=== PATIENT | male | born 1990 | race Caucasian/White ===

== ENCOUNTER 2018-12-17 09:53 | Emergency (ER) | payer SELFPAY ==
[~2018-12-17] VITALS: Ht 190.5 cm; Wt 87.0 kg
[2018-12-17] MEDS ORDERED: IV NORMAL SALINE 1,000ML 1,000 ML IV SCH (10:17)
--- NOTE | 2018-12-17 10:21 | PHYS DOC ---
Past History Past Medical History: GERD, High Cholesterol, Hypertension Past Surgical History: No Surgical History Additional Smoking Information: 1 PPD Alcohol Use: None Drug Use: None Adult General Chief Complaint Chief Complaint: CHEST PAIN HPI HPI Patient is a 28 year old male who presents with complaint of chest pain. Patient states his symptoms started last night at approximately 1800. States that the symptoms came on at rest. Notes sharp pain along the left side of his chest. Denies radiation of pain. States that the pain does worsen with movement. Denies any associated shortness of breath, coughing, fever, or lightheadedness. Notes that the pain does worsen with movement. Has history of hypertension and had been on treatment for hyperlipidemia but states he was recently taken off medications for this. History of active tobacco use. States that he took acid reflux medication this morning but states that this did not he lp with his symptoms. Review of Systems Review of Systems Constitutional: Denies fever or chills [] Eyes: Denies change in visual acuity, redness, or eye pain [] HENT: Denies nasal congestion or sore throat [] Respiratory: Denies cough or shortness of breath [] Cardiovascular: Chest pain, denies edema[] GI: Denies abdominal pain, nausea, vomiting, bloody stools or diarrhea [] : Denies dysuria or hematuria [] Musculoskeletal: Denies back pain or joint pain [] Integument: Denies rash or skin lesions [] Neurologic: Denies headache, focal weakness or sensory changes [] All other systems were reviewed and found to be within normal limits, except as documented in this note. Allergies Allergies Allergies Coded Allergies Type Severity Reaction Last Updated Verified amoxicillin Allergy Mild 12/17/18 Yes penicillin V Allergy Mild 12/17/18 Yes Physical Exam Physical Exam Constitutional: Alert, afebrile, appears in [id number] discomfort. [] HENT: Normocephalic, atraumatic, bilateral external ears normal, oropharynx moist, no oral exudates, nose normal. [] Eyes: PERRLA, EOMI, conjunctiva normal, no discharge. [] Neck: Normal range of motion, no tenderness, supple, no stridor. [] Cardiovascular:Heart rate regular rhythm, no murmur [] Lungs & Thorax: Bilateral breath sounds clear to auscultation, left anterior chest wall tenderness to palpation adjacent to the sternum causing reproducible symptoms [] Abdomen: Bowel sounds normal, soft, no tenderness, no masses, no pulsatile masses. [] Skin: Warm, dry, no erythema, no rash. [] Back: No tenderness, no CVA tenderness. [] Extremities: No tenderness, no cyanosis, no clubbing, ROM intact, no edema. [] Neurologic: Alert and oriented X 3, normal motor function, normal sensory function, no focal deficits noted. [] Current Patient Data Vital Signs Vital Signs Date Time Temp Pulse Resp B/P (MAP) Pulse Ox O2 Delivery O2 Flow Rate FiO2 12/17/18 10:07 97.7 80 21 98 Room Air Lab Results Laboratory Tests Test 12/17/18 10:15 White Blood Count 17.3 x10^3/uL Red Blood Count 6.17 x10^6/uL Hemoglobin 17.3 g/dL Hematocrit 51.6 % Mean Corpuscular Volume 84 fL Mean Corpuscular Hemoglobin 28 pg Mean Corpuscular Hemoglobin Concent 34 g/dL Red Cell Distribution Width 13.8 % Platelet Count 306 x10^3/uL Neutrophils (%) (Auto) 80 % Lymphocytes (%) (Auto) 11 % Monocytes (%) (Auto) 8 % Eosinophils (%) (Auto) 1 % Basophils (%) (Auto) 0 % Neutrophils # (Auto) 13.8 x10^3uL Lymphocytes # (Auto) 1.9 x10^3/uL Monocytes # (Auto) 1.3 x10^3/uL Eosinophils # (Auto) 0.2 x10^3/uL Basophils # (Auto) 0.1 x10^3/uL Segmented Neutrophils % 80 % Band Neutrophils % 1 % Lymphocytes % 12 % Monocytes % 5 % Eosinophils % 1 % Basophils % 1 % Platelet Estimate Adequate D-Dimer (Juanita) < 0.19 mg/L Sodium Level 140 mmol/L Potassium Level 4.2 mmol/L Chloride Level 104 mmol/L Carbon Dioxide Level 24 mmol/L Anion Gap 12 Blood Urea Nitrogen 19 mg/dL Creatinine 1.1 mg/dL Estimated GFR (Cockcroft-Gault) 79.7 BUN/Creatinine Ratio 17 Glucose Level 97 mg/dL Calcium Level 9.9 mg/dL Magnesium Level 2.0 mg/dL Total Bilirubin 0.4 mg/dL Aspartate Amino Transf (AST/SGOT) 23 U/L Alanine Aminotransferase (ALT/SGPT) 46 U/L Alkaline Phosphatase 74 U/L Creatine Kinase 171 U/L Creatine Kinase MB (Mass) 1.0 ng/mL Creatine Kinase MB Relative Index 0.6 % Troponin I Quantitative < 0.017 ng/mL Total Protein 8.5 g/dL Albumin 4.4 g/dL Albumin/Globulin Ratio 1.1 Lipase 97 U/L Current Medications Medications (Trade) Dose Ordered Sig/Jose Elias Route PRN Reason Start Time Stop Time Status Last Admin Dose Admin Aspirin (Children'S Aspirin) 324 mg 1X ONCE PO 12/17/18 10:45 12/17/18 10:47 DC 12/17/18 10:23 Sodium Chloride 1,000 ml @ 1,000 mls/hr Q1H IV 12/17/18 10:17 12/17/18 11:16 DC 12/17/18 10:17 EKG EKG Interpreted by me: Heart rate 74, sinus rhythm, normal intervals, normal axis, no acute ST/T-wave abnormalities present[] Radiology/Procedures Radiology/Procedures [address] [address] IMAGING REPORT Signed PATIENT: JIMENA TAPIA ACCOUNT: [id number] : 1990 LOCATION: ER AGE: 28 SEX: M EXAM STATUS: REG ER ORD. PHYSICIAN: MARCELLE RUEDA MD REASON: CHEST PAIN, SHORTNESS OF BREATH, SMOKER X 10 YEARS PROCEDURE: CHEST PA & LATERAL CHEST PA LATERAL History: Chest pain and shortness of breath. Smoker for 10 years. Comparison: None. Findings: The cardiomediastinal silhouette is normal. Pulmonary vasculature is normal. The lungs are clear. No pleural effusion or pneumothorax is seen. There is no acute bone abnormality. IMPRESSION: No acute cardiopulmonary process. Electronically signed by: Donald Shah MD (12/17/2018 10:37 AM) [facility] DICTATED AND SIGNED BY: DONALD SHAH MD DATE: 12/17/18 1037 CC: MARCELLE RUEDA MD; PCP,NO ~ [] Course & Med Decision Making Course & Med Decision Making Pertinent Labs and Imaging studies reviewed. (See chart for details) Patient given aspirin in the emergency department. Heart score is 1, placing patient in low risk category for major acute cardiac event. The patient's symptoms are very atypical for cardiac chest pain and appear more consistent with acute chest wall pain. The patient will continue on Naprosyn and Tylenol for outpatient treatment. Advised follow-up with primary doctor in 3 days for reevaluation and recommended return to the emergency department for any worsening symptoms. Patient was understanding and in agreement with treatment plan.[] Dragon Disclaimer Dragon Disclaimer This electronic medical record was generated, in whole or in part, using a voice recognition dictation system. Departure Departure: Impression: Primary Impression: Chest wall pain Disposition: HOME, SELF-CARE Condition: IMPROVED Referrals: PCPJEREMI (PCP) Patient Instructions: Chest Wall Pain Additional Instructions: Follow-up with your primary doctor in the next 3 days for reevaluation. Return to the emergency department for any worsening symptoms. Scripts Naproxen (NAPROSYN) 500 Mg Tablet 1 TAB PO BID, #20 TAB 0 Refills Prov: MARCELLE RUEDA MD 12/17/18 MARCELLE RUEDA MD Dec 17, 2018 10:21
--- NOTE | 2018-12-17 10:40 | RAD ---
CHEST PA LATERAL History: Chest pain and shortness of breath. Smoker for 10 years. Comparison: None. Findings: The cardiomediastinal silhouette is normal. Pulmonary vasculature is normal. The lungs are clear. No pleural effusion or pneumothorax is seen. There is no acute bone abnormality. IMPRESSION: No acute cardiopulmonary process. Electronically signed by: Donald Higuera MD (12/17/2018 10:37 AM) [facility]
[2018-12-17 10:42] LABS: BASO # 0.1 x10^3/uL (0.0-0.2); BASO % 0 % (0-3); EOS # 0.2 x10^3/uL (0.0-0.7); EOS % 1 % (0-3); HEMATOCRIT 51.6 % (39.0-53.0); HEMOGLOBIN 17.3 g/dL (13.0-17.5); LYMPH # 1.9 x10^3/uL (1.0-4.8); LYMPH % 11 % (24-48); MEAN CORPUSCULAR HEMOGLOBIN 28 pg (25-35); MEAN CORPUSCULAR HGB CONC 34 g/dL (31-37); MEAN CORPUSCULAR VOLUME 84 fL (79-100); MONO # 1.3 x10^3/uL (0.0-1.1); MONO % 8 % (0-9); NEUT # 13.8 x10^3uL (1.8-7.7); NEUT % 80 % (31-73); PLATELET COUNT 306 x10^3/uL (140-400); RED BLOOD COUNT 6.17 x10^6/uL (4.30-5.70); RED CELL DISTRIBUTION WIDTH 13.8 % (11.5-14.5); WHITE BLOOD COUNT 17.3 x10^3/uL (4.0-11.0)
[2018-12-17] MEDS ORDERED: ASPIRIN 81 MG TAB.CHEW PO ONE (10:45)
[2018-12-17 11:04] LABS: ALBUMIN 4.4 g/dL (3.4-5.0); ALBUMIN/GLOBULIN RATIO 1.1 (1.0-1.7); CALCIUM 9.9 mg/dL (8.5-10.1); CREATININE 1.1 mg/dL (0.7-1.3); GFR 79.7; POTASSIUM 4.2 mmol/L (3.5-5.1); TOTAL BILIRUBIN 0.4 mg/dL (0.2-1.0); TOTAL PROTEIN 8.5 g/dL (6.4-8.2)
[2018-12-17 12:10] LABS: % BANDS 1 % (0-9); % BASOS 1 % (0-3); % EOS 1 % (0-5); % LYMPHS 12 % (24-48); % MONOS 5 % (0-10); % SEGS 80 % (35-66); PLT ESTIMATE ADEQUATE (ADEQUATE)
[2018-12-17] MEDS ORDERED: NAPR-683 PO (12:22)
[2018-12-17 12:23] VITALS: BP 118/68
== END 2018-12-17 12:36 | disposition home or self-care (01) ==
LOC: ER 09:53
DX: R07.89 Other chest pain (principal); K21.9 Gastro-esophageal reflux disease without esophagitis; E78.00 Pure hypercholesterolemia, unspecified; I10 Essential (primary) hypertension; F17.200 Nicotine dependence, unspecified, uncomplicated; Z88.0 Allergy status to penicillin; Z88.1 Allergy status to other antibiotic agents
CPT/HCPCS: 36415; 71046; 80053; 82553; 83690; 83735; 84484; 85007; 85025; 85379; 93005; 99285; J7030